=== PATIENT | female | born 1950 | race African-American/Black ===

== ENCOUNTER 2023-02-15 17:24 | Emergency (ER) | payer OTHER ==
[~2023-02-15] VITALS: Ht 165.1 cm; Wt 66.0 kg
[2023-02-15 17:29] VITALS: BP 145/88
[2023-02-15] MEDS ORDERED: TETRACAINE 0.5% OPHTH DROPS 4ML EACHEYE ONE (22:45)
[2023-02-15] MEDS ORDERED: FLUORESCEIN SODIUM 1MG/STRIP RIGHTEYE ONE (22:45)
[2023-02-16] MEDS ORDERED: TETRACAINE 0.5% OPHTH DROPS 4ML EACHEYE NR (03:00)
[2023-02-16] MEDS ORDERED: FLUORESCEIN SODIUM 1MG/STRIP RIGHTEYE NR (03:00)
== END 2023-02-16 04:13 | disposition home or self-care (01) ==
LOC: ER 17:24
DX: T15.91XA Foreign body on external eye, part unspecified, right eye, initial encounter (principal); V49.9XXA Car occupant (driver) (passenger) injured in unspecified traffic accident, initial encounter; Y93.89 Activity, other specified; Y92.89 Other specified places as the place of occurrence of the external cause; Y99.8 Other external cause status
CPT/HCPCS: 99284